=== PATIENT | female | born 1930 | race Caucasian/White ===

== ENCOUNTER 2018-02-23 17:55 | Inpatient (IN) | payer MEDICARE, BC ==
--- NOTE | 2018-02-23 18:42 | RAD ---
CHEST ONE VIEW: INDICATIONS: Chest pain. COMPARISON: 08/13/2015 FINDINGS: Small suspected hiatal hernia. Mild cardiomegaly is stable. Lungs clear. No acute osseous abnormal ities evident. IMPRESSION: Small hiatal hernia and mild cardiomegaly. POS: [facility]
[2018-02-23] MEDS ORDERED: Diltiazem 125 MG/25 ML ONE (19:12)
[2018-02-23] MEDS ORDERED: Diltiazem HCl 125 MG, Admixture Fee 1 EACH in Sodium Chloride 0.9% 100 ML IVPB SCH (19:15)
[2018-02-23 19:26] LABS: Hemoglobin 13.9 g/dL (12.0-16.0); Mean Corpuscular HGB CONC 31.5 g/dL (32.0-36.0); Mean Corpuscular Hemoglobin 27.9 pg (27.0-31.0); Mean Corpuscular Volume 88.6 fL (78.0-98.0); Platelet Count 161 thou/uL (130-400); RBC Distribution Width 14.3 % (11.5-14.5); Red Blood Cell (RBC) Count 4.96 mill/uL (4.20-5.40); White Blood Cell (WBC) Count 22.8 thou/uL (4.8-10.8)
[2018-02-23 19:46] LABS: ALT (SGPT) 15 U/L (8-55); AST (SGOT) 28 U/L (5-34); Albumin 4.1 g/dL (3.4-4.8); Alkaline Phosphatase 81 U/L (40-150); Anion Gap 15 mmol/L (10-20); BUN (Urea Nitrogen) 20 mg/dL (9.8-20.1); Bilirubin, Total 0.4 mg/dL (0.2-1.2); CK (CPK) 65 U/L (29-168); CKMB 2.5 ng/mL (0-6.6); Calc. Creatinine Clearance 0 mL/min (70-130); Calcium 9.1 mg/dL (7.8-10.44); Carbon Dioxide 22 mmol/L (23-31); Chloride 107 mmol/L (98-107); Estimated GFR-MDRD 57; Globulin 2.8 g/dL (2.4-3.5); Glucose 98 mg/dL (83-110); Potassium 4.5 mmol/L (3.5-5.1); Protein, Total 6.9 g/dL (6.0-8.3); Sodium 139 mmol/L (136-145); Troponin I Less than 0.010 ng/mL (< 0.028)
[2018-02-23 19:52] LABS: Band 3 % (5-11); Lymphocytes 57 % (21-51); MDiff Complete? YES; Monocytes 4 % (0-10); Neutrophil 31 % (42-75); PLT Morphology Comment Appears Adequate; RBC Morphology Normal; Reactive Lymphocytes 4 % (0-10)
[2018-02-23] MEDS ORDERED: Acetaminophen 325 MG TAB PO PRN (21:29)
[2018-02-23] MEDS ORDERED: Bisacodyl 5 MG TAB PO PRN (21:29)
[2018-02-23] MEDS ORDERED: Senokot S 8.6-50 MG TAB PO PRN (21:29)
[2018-02-23] MEDS ORDERED: Ondansetron PF 4 MG/2 ML Vial IVP PRN (21:29)
[2018-02-23] MEDS ORDERED: Ondansetron ODT 4 MG TAB PO PRN (21:29)
[2018-02-23 22:30] LABS: Troponin I Less than 0.010 ng/mL (< 0.028)
[2018-02-23] MEDS: Sodium Chloride 0.9% 1,000 ML IV SCH (23:13)
[2018-02-23] MEDS ORDERED: ALPRAZolam 0.5 MG TAB PO SCH (23:15)
[2018-02-23] MEDS ORDERED: Apixaban 5 MG TAB PO SCH (23:15)
[2018-02-24 00:31] VITALS: BMI 30.3
[2018-02-24 01:31] LABS: Lymphocytes 58 % (21-51); MDiff Complete? YES; Mean Corpuscular Hemoglobin 27.8 pg (27.0-31.0); Mean Corpuscular Volume 89.6 fL (78.0-98.0); Monocytes 1 % (0-10); Neutrophil 32 % (42-75); PLT Morphology Comment Appears Adequate; Platelet Count 142 thou/uL (130-400); RBC Distribution Width 14.4 % (11.5-14.5); RBC Morphology Normal; Reactive Lymphocytes 9 % (0-10); Red Blood Cell (RBC) Count 4.31 mill/uL (4.20-5.40); White Blood Cell (WBC) Count 23.4 thou/uL (4.8-10.8)
[2018-02-24 01:32] LABS: Anion Gap 9 mmol/L (10-20); BUN (Urea Nitrogen) 20 mg/dL (9.8-20.1); Calc. Creatinine Clearance 53 mL/min (70-130); Calcium 8.5 mg/dL (7.8-10.44); Carbon Dioxide 25 mmol/L (23-31); Chloride 110 mmol/L (98-107); Estimated GFR-MDRD 68; Glucose 115 mg/dL (83-110); Potassium 3.6 mmol/L (3.5-5.1); Sodium 140 mmol/L (136-145)
[2018-02-24 01:36] LABS: Troponin I 0.015 ng/mL (< 0.028)
[2018-02-24] MEDS ORDERED: Non-Formulary Item 1 EACH (Esomeprazole Magnesium [Nexium] 40 MG) PO SCH (08:00)
--- NOTE | 2018-02-24 08:06 | HP ---
CHIEF COMPLAINT: Chest discomfort. HISTORY OF PRESENT ILLNESS: This is an 87-year-old female with past medical history of cirrhosis, hiatal hernia, GERD, hyperlipidemia, hypertension, CVA, Lyme disease, colitis, presenting with atrial fibrillation with rapid ventricular response. Per the patient, she normally gets atrial fibrillation with rapid ventricular response, and on the day of admission, she was told to come to the hospital if she goes into atrial fibrillation for more than 24 hours. The patient states that she has been having atrial fibrillation for more than 24 hours; therefore, she decided to follow the instructions that was given to her by her PMD to come to the hospital to be evaluated. Per patient, she has been feeling the symptoms of rapid heart rate for a day and is constant and all resolved, and patient denies any headaches, dizziness, shortness of breath, abdominal pain, nausea, vomiting, diarrhea, constipation; however, admits to some dehydration and subjective fever. REVIEW OF SYSTEMS: Patient admits to subjective fevers, rapid heart rate, and dehydration; otherwise as documented in the HPI, all other systems were reviewed and are negative. PAST MEDICAL HISTORY: Cirrhosis, hiatal hernia, GERD, hyperlipidemia, hypertension, CVA, Lyme disease, colitis, lymphocytic colitis. PAST SURGICAL HISTORY: Hysterectomy. FAMILY HISTORY: Reviewed and noncontributory PSYCHIATRIC HISTORY: Anxiety. SOCIAL HISTORY: The patient denies alcohol use. The patient denies any drug use. The patient denies any smoking history. ALLERGIES: CODEINE and SULFA. CURRENT MEDICATIONS: Patient is on, 1. Metoprolol 25 mg oral a day. 2. Nexium 40 mg oral a day. 3. Aspirin 81 mg oral a day. 4. Xanax 0.5 mg daily. 5. Azelastine spray 1 inhalation nares both as needed. 6. Fluticasone 50 mcg 1 puff nares both as needed. 7. VESIcare 5 mg. 8. [place] Thyroid 35. 9. B12. 10. Centrum Silver 11. Coenzyme Q10. PHYSICAL EXAMINATION: VITAL SIGNS: Blood pressure is 115/102, pulse is 153, respiratory rate of 22, temperature of 98.3, O2 sat of 94% on room air. GENERAL: The patient is lying in bed, comfortable, talkative, alert, oriented x3, does not appear to be in any distress. HEENT: Normocephalic, atraumatic. Pupils are equally round and reactive to light. Extraocular movements are intact. No scleral icterus. No conjunctival pallor. Mucous membranes are moist. NECK: Supple, no JVD. Trachea is midline. LUNGS: Clear to auscultation bilaterally. No wheezing, no rales, no rhonchi appreciated. CARDIOVASCULAR: Irregularly irregular, patient is tachycardic. ABDOMEN: Soft, nontender, nondistended. Positive bowel sounds in all quadrants. No masses. No pulsatile masses. EXTREMITIES: The patient has suffered 5/5 upper extremity strength, 5/5 lower extremity strength. No edema. Good pulses bilaterally in the upper and lower extremities. NEUROLOGIC: Cranial nerves II-XII grossly intact. No neurologic deficits noted. SKIN: Warm, dry, and intact. PSYCHIATRIC: Normal affect, alert and oriented x3. EKG: A 12-lead EKG showed atrial fibrillation with rapid ventricular response of 127. ED COURSE: The patient was started on Cardizem drip. LABORATORY DATA: WBC is 22.8, hemoglobin is 13.9, hematocrit is 43.9, MCV is 88.6, RDW is 14.3, platelet count is 161. Sodium is 139, potassium is 4.5, chloride is 107, carbon dioxide 22, anion gap of 15, BUN is 20, creatinine 0.92. AST is 28, ALT is 15, creatine kinase 65. TSH is 1.6. Troponins x3 are 0.010. ASSESSMENT AND PLAN: This is an 87-year-old female, being admitted for: 1. atrial fibrillation/rapid ventricular response. At this point, the patient has been started on Cardizem drip. The patient's heart rate is now in the 70s. We are going to titrate the patient off Cardizem drip. We have consulted Cardiology. We will follow up with their recommendations. 2. History of gastroesophageal reflux disease. We will continue patient on her home medication. 3. Hyperlipidemia. Continue the patient on her current medications. 4. Hypertension. Continue patient on current medications. 5. Lymphocytic colitis. The patient has been started on steroids. We will continue patient on steroids. 6. Leukocytosis, most likely steroid induced. We will continue to monitor the patient's white count. At this point, we will hold off antibiotics. We will continue to monitor the patient. 7. Gastrointestinal and deep venous thrombosis prophylaxis. MTDD
[2018-02-24] MEDS ORDERED: Amlodipine 5 MG TAB PO SCH (09:00)
[2018-02-24] MEDS ORDERED: Apixaban 5 MG TAB PO SCH (09:00)
--- NOTE | 2018-02-24 10:10 | CON ---
DATE OF CONSULTATION: 02/24/2018 HISTORY OF PRESENT ILLNESS: Patient is a very pleasant woman with a long history of atrial fibrillation who presented with recurrent palpitations. The patient has been admitted on multiple occasions with atrial fibrillation. She has been on metoprolol for rate control and on anticoagulation therapy. The patient states that she felt extremely weak and with palpitations. The patient was noted to have a very rapid heart rate and was admitted for further evaluation. PAST MEDICAL HISTORY: 1. Hypertension. 2. Cirrhosis. 3. Cerebrovascular accident. 4. Lyme disease. PAST SURGICAL HISTORY: She has had a hysterectomy. SOCIAL HISTORY: Nonsmoker. MEDICATIONS ON ADMISSION: Metoprolol 50 mg p.o. b.i.d., Eliquis 2.5 b.i.d., Norvasc 5 daily, Xanax 0.5 mg p.o. daily, [place] Thyroid. ALLERGIES: CODEINE and SULFA DRUGS. REVIEW OF SYSTEMS: Ten-point system otherwise unremarkable. She does report that she has been diagnosed with Lyme disease. PHYSICAL EXAMINATION: GENERAL: This is an elderly woman, in no acute distress. VITAL SIGNS: Blood pressure 103/55. NECK: Showed no jugular venous distention. LUNGS: Clear to auscultation. HEART: Irregular rate and rhythm, normal S1, S2. 1/6 soft murmur. ABDOMEN: Nondistended. EXTREMITIES: Showed trace edema. VASCULAR: Radial pulses are 2+. LABORATORY DATA: Sodium 140, potassium 3.6, chloride 110, bicarbonate 25, BUN 20, creatinine 0.8, glucose 115. Troponin less than 0.01. White blood cell count was 23.4, hemoglobin 12.0, hematocrit 38.6 and her platelets were 142. Her troponin was less than 0.01. Her EKG revealed atrial fibrillation with rapid ventricular response. IMPRESSION: 1. Atrial fibrillation with rapid ventricular response. 2. Hypertension. 3. History of cerebrovascular accident. 4. History of cirrhosis. 5. History of Lyme disease. This patient presents with recurrent rapid atrial fibrillation. From a cardiac standpoint, we will increase the dose of metoprolol and discontinue amlodipine to hopefully better control her heart rate. We will add digoxin to her medical regimen. We will follow this patient with you. We will continue the patient on Eliquis. MTDGriffin
[2018-02-24] MEDS: Apixaban 2.5 MG TAB PO SCH ×2 (10:35→20:10)
[2018-02-24] MEDS ORDERED: Digoxin 0.5 MG/2 ML AMP SLOW IVP ONE ×2 (12:30→20:30)
[2018-02-24] MEDS: Sodium Chloride 0.9% 1,000 ML IV SCH (14:35)
--- NOTE | 2018-02-24 20:23 | PDOC.PN ---
- Subjective Encounter Start Date: 02/24/18 Encounter Start Time: 20:21 Subjective: nsg notes rev, lucho ovn, no new c/o overall feels better and wants to know -: if she can go home tomorrow - Objective Resuscitation Status: Resuscitation Status FULL:Full Resuscitation Vital Signs & Weight: Vital Signs (12 hours) Temp Pulse Resp BP Pulse Ox 02/24/18 20:10 106 H 02/24/18 16:57 97.9 F 106 H 24 H 133/71 95 02/24/18 13:13 97.9 F 114 H 16 119/72 96 02/24/18 13:05 122 H 02/24/18 09:15 92 L Weight Weight 155 lb 3.2 oz I&O: 02/23/18 02/24/18 02/25/18 06:59 06:59 06:59 Intake Total 783.0 Output Total 700 Balance 83.0 Result Diagrams: 02/24/18 00:46 02/24/18 00:46 Phys Exam - Physical Examination Constitutional: NAD standing by the edge of the bed HEENT: PERRLA, moist MMs Respiratory: no wheezing, no rales, no rhonchi, clear to auscultation bilateral Cardiovascular: RRR, no significant murmur, no rub Gastrointestinal: soft, positive bowel sounds Musculoskeletal: no edema, pulses present Neurological: moves all 4 limbs Psychiatric: normal affect, A&O x 3 Dx/Plan - Plan * atrial fibrillation * apprec card c/s - digoxin was started * continue to monitor on telemetry * * leukocytosis without evid of infection clinically or in other imaging * will continue to monitor - recheck tomorrow * hemodynamically stable, suspect reactive? * * diet: as yolanda * activity: as yolanda * dvt ppx Review of Systems - Medications/Allergies Allergies/Adverse Reactions: Allergies Allergy/AdvReac Type Severity Reaction Status Date / Time Sulfa (Sulfonamide Allergy Unknown blisters Verified 02/24/18 00:43 Antibiotics) codeine Allergy Verified 02/24/18 00:43 mannitol Allergy Verified 02/24/18 10:37 pantoprazole [From Protonix] Allergy Verified 02/24/18 10:37 sorbitol Allergy Verified 02/24/18 10:37 Medications: Current Medications Acetaminophen (Tylenol) 650 mg PO Q4H PRN PRN Reason: Headache/Fever/Mild Pain (1-3) Alprazolam (Xanax) 0.5 mg PO HS [facility] Apixaban (Eliquis) 2.5 mg PO BID [facility] Last Admin: 02/24/18 20:10 Dose: 2.5 mg Bisacodyl (Dulcolax) 10 mg PO DAILYPRN PRN PRN Reason: Constipation Digoxin (Lanoxin) 0.25 mg SLOW IVP 2030 ONE Stop: 02/24/18 20:31 Last Admin: 02/24/18 20:10 Dose: 0.25 mg Digoxin (Lanoxin) 0.125 mg PO QAM [facility] Sodium Chloride (Normal Saline 0.9%) 1,000 mls @ 70 mls/hr IV .[id number] [facility] Last Admin: 02/24/18 14:35 Dose: Not Given Metoprolol Succinate (Toprol Xl) 50 mg PO TID [facility] Last Admin: 02/24/18 20:10 Dose: 50 mg Ondansetron HCl (Zofran Odt) 4 mg PO Q6H PRN PRN Reason: Nausea/Vomiting Ondansetron HCl (Zofran) 4 mg IVP Q6H PRN PRN Reason: Nausea/Vomiting Pantoprazole Sodium (Protonix) 40 mg PO DAILY [facility] Last Admin: 02/24/18 10:36 Dose: Not Given Senna/Docusate Sodium (Senokot S) 2 tab PO BID PRN PRN Reason: Constipation Sodium Chloride (Flush - Normal Saline) 10 ml IVF Q12HR PRN PRN Reason: Saline Flush Last Admin: 02/24/18 20:12 Dose: 10 ml Sodium Chloride (Flush - Normal Saline) 10 ml IVF PRN PRN PRN Reason: Saline Flush
[2018-02-24] MEDS ORDERED: ALPRAZolam 0.5 MG TAB PO SCH (21:00)
[2018-02-24] MEDS ORDERED: Atorvastatin Calcium 10 MG TAB PO SCH (21:00)
[2018-02-25] MEDS: Sodium Chloride 0.9% 1,000 ML IV SCH (01:52)
[2018-02-25] MEDS ORDERED: Digoxin 0.125 MG TAB PO SCH (09:00)
[2018-02-25] MEDS: Apixaban 2.5 MG TAB PO SCH (09:30)
[2018-02-25 10:37] VITALS: BP 148/64; TEMP 97.9
--- NOTE | 2018-02-26 07:15 | DIS ---
DATE OF ADMISSION: 02/23/2018 DATE OF DISCHARGE: 02/25/2018 DISCHARGE DISPOSITION: Home. FOLLOWUP: Follow up with primary care physician, Dr. Sergo Jarquin in 1 week. Follow up with Cardio logy, Dr. Roberto Mills in 2 weeks. The patient was seen and examined on the day of discharge, denies any new complaints, no chest pain, shortness of breath, palpitations. DISCHARGE MEDICATIONS: Toprol-XL 50 mg 3 times a day, digoxin 0.125 mg daily, Xanax 0.5 mg at bedtim e, Tylenol as needed, apixaban 2.5 mg twice a day, Benadryl 50 mg at bedtime. INPATIENT CONSULTANTS: Cardiology, Dr. Roberto Mills. DIAGNOSTIC TESTS: Echocardiogram showed left ventricular ejection fraction of 60-65% with mild eloisa l regurgitation, mild to moderate tricuspid regurgitation. BRIEF HOSPITAL COURSE: Patient is an 87-year-old female with atrial fibrillation who presented to [facility] with chest discomfort. Please refer to the history and physical for further details. The patient was admitted to the hospital with a diagnosis of atrial fibrillation with rapid ventricul ar response. She was started on Cardizem drip. The patient was seen by Cardiology, Dr. Roberto de oliveira. Cardizem drip has been discontinued. Toprol dose was increased per Cardiology. She has been als o started on digoxin. She has been cleared by Cardiology for discharge. The patient was seen and examined on the day of discharge, denies any new complaints. FINAL DIAGNOSES: 1. Atrial fibrillation with rapid ventricular response. 2. Hypertension. 3. Hyperlipidemia. 4. Gastroesophageal reflux disease. 5. Suspected chronic lymphocytic leukemia. Patient follows with her primary care physician. 6. Chronic kidney disease stage 2. Plan of care was discussed with the patient in detail. She stated understanding.
== END 2018-02-25 11:47 | disposition home or self-care (01) | DRG 309 ==
LOC: ERS 17:55 → 2NO 22:13
PROVIDERS: ADMIT Internal Medicine; ATTEND Internal Medicine
DX: I48.91 Unspecified atrial fibrillation (principal); C91.10 Chronic lymphocytic leukemia of B-cell type not having achieved remission; E78.5 Hyperlipidemia, unspecified; I08.1 Rheumatic disorders of both mitral and tricuspid valves; K21.9 Gastro-esophageal reflux disease without esophagitis; N18.2 Chronic kidney disease, stage 2 (mild); I12.9 Hypertensive chronic kidney disease with stage 1 through stage 4 chronic kidney disease, or unspecified chronic kidney disease; Z86.73 Personal history of transient ischemic attack (TIA), and cerebral infarction without residual deficits; Z79.899 Other long term (current) drug therapy; Z79.51 Long term (current) use of inhaled steroids; Z88.5 Allergy status to narcotic agent; Z88.2 Allergy status to sulfonamides
CPT/HCPCS: 36415; 71045; 80048; 80053; 82553; 84443; 84484; 85025; 93005; 93306; 96365; 96366; 96376; J1160; J7050